=== PATIENT | female | born 1980 | race Hispanic/Latino ===

== ENCOUNTER 2018-08-18 14:15 | Emergency (ER) | payer MEDICAID, OTHER ==
[2018-08-18] MEDS ORDERED: ACETAMINOPHEN EXTRA STRENGTH 500 MG TABLET ONE (14:45)
== END 2018-08-18 15:56 | disposition home or self-care (01) ==
LOC: EDH 14:15
DX: S93.621A Sprain of tarsometatarsal ligament of right foot, initial encounter (principal); Z72.0 Tobacco use; X50.0XXA Overexertion from strenuous movement or load, initial encounter; Y93.89 Activity, other specified; Y92.89 Other specified places as the place of occurrence of the external cause; Y99.8 Other external cause status
CPT/HCPCS: 73630